=== PATIENT | female | born 2000 | race Caucasian/White ===

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

== ENCOUNTER 2023-03-01 07:22 | Emergency (ER) | payer OTHER ==
[~2023-03-01] VITALS: Ht 157.4 cm; Wt 56.7 kg
[~2023-03-01 07:22] MED LIST changes: +PREDNISONE20 M1 PO
[2023-03-01] MEDS ORDERED: PREDNISONE50 MG PO (09:33)
[2023-03-03] MEDS ORDERED: IS (12:04)
[2023-03-03] MEDS ORDERED: PREDNISONE10 MG PO (12:04)
[2023-03-03] MEDS ORDERED: MUCUS RELIEF600 MG PO (12:04)
== END 2023-03-01 09:37 | disposition home or self-care (01) ==
LOC: ED 07:22
DX: J45.901 Unspecified asthma with (acute) exacerbation (principal); Z79.899 Other long term (current) drug therapy

== ENCOUNTER 2023-05-29 16:20 | Emergency (ER) | payer OTHER ==
[~2023-05-29] VITALS: Ht 157.4 cm; Wt 59.0 kg
[~2023-05-29 16:20] MED LIST changes: +IS; +MUCUS RELIEF600 MG PO; +PREDNISONE10 MG PO; +PREDNISONE50 MG PO
[2023-05-29] MEDS ORDERED: SYMB160 INH (16:36)
== END 2023-05-29 18:15 | disposition left against medical advice (07) ==
LOC: ED 16:20
DX: R10.9 Unspecified abdominal pain (principal); M54.9 Dorsalgia, unspecified; R11.0 Nausea; M25.511 Pain in right shoulder; Z53.21 Procedure and treatment not carried out due to patient leaving prior to being seen by health care provider

== ENCOUNTER → 2024-03-12 | Outpatient (CLI) | payer OTHER ==
[~2024-03-12] MED LIST changes: +BUPROPION HYDR150 M1 PO; +CETIRIZINE HYDR10 MG PO; +FEXOFENADINE HY60 MG PO; +LO LOESTRIN FE1 EACH PO; +SYMB160 INH; +VENLAFAXINE HY150 M2 PO
== END | disposition home or self-care (01) ==
LOC: RAD 10:32
PROVIDERS: ATTEND Nurse Practitioner Family
DX: K59.01 Slow transit constipation (principal)

== ENCOUNTER 2024-03-18 14:34 | Emergency (ER) | payer OTHER ==
[~2024-03-18] VITALS: Ht 157.4 cm; Wt 56.7 kg
[~2024-03-18 14:34] MED LIST changes: -BUPROPION HYDR150 M1 PO; -CETIRIZINE HYDR10 MG PO; -FEXOFENADINE HY60 MG PO; -LO LOESTRIN FE1 EACH PO; -VENLAFAXINE HY150 M2 PO
[2024-03-18] MEDS ORDERED: LO LOESTRIN FE1 EACH PO (15:50)
[2024-03-18] MEDS ORDERED: VENLAFAXINE HY150 M2 PO (15:50)
[2024-03-18] MEDS ORDERED: FEXOFENADINE HY60 MG PO (15:50)
[2024-03-18] MEDS ORDERED: CETIRIZINE HYDR10 MG PO (15:50)
[2024-03-18] MEDS ORDERED: BUPROPION HYDR150 M1 PO (15:50)
[2024-03-18] MEDS ORDERED: SODIUM CHLORIDE 0.9% 1,000 ML IV ONE (16:00)
[2024-03-18] MEDS ORDERED: Ondansetron Hydrochloride 4 MG/2 ML VIAL IV ONE (16:05)
[2024-03-18] MEDS ORDERED: IOHEXOL 300 MG/ML 100 ML VIAL IV ONE (16:15)
[2024-03-18 16:41] LABS: BASO # 0.1 10*3/uL (0.0-0.1); BASO % 1.3 % (0.0-1.0); EOS # 0.9 10*3/uL (0.0-0.4); EOS % 9.6 % (1.0-4.0); HEMATOCRIT 42.7 % (37.0-47.0); LYMPH # 2.7 10*3/uL (1.3-4.4); LYMPH % 29.8 % (27.0-41.0); MEAN CELL VOLUME 91.4 fl (81.0-99.0); MEAN CORPUSCULAR HGB 31.9 pg (27.0-31.0); MEAN CORPUSCULAR HGB CONC 34.9 g/dl (33.0-37.0); MEAN PLATELET VOLUME 10.3 fl (9.6-12.3); MONO # 0.8 10*3/uL (0.1-1.0); MONO % 8.4 % (3.0-9.0); NEUT # 4.5 10*3/uL (2.3-7.9); NEUT % 50.7 % (47.0-73.0); PLATELET COUNT AUTOMATED 326 10*3/uL (130-400); RED BLOOD COUNT 4.67 10*6/uL (4.10-5.10); RED CELL DISTRI WIDTH 12.2 % (0-14.5); WHITE BLOOD COUNT 8.9 10*3/uL (4.8-10.8)
[2024-03-18 17:04] LABS: ALKALINE PHOSPHATASE 46 U/L (46-116); BUN 8 mg/dl (9-23); CHLORIDE 104 mmol/L (98-107); LIPASE 33 U/L (12-53); SGPT/ALT 18 U/L (5-49)
[2024-03-18 17:13] LABS: BILIRUBIN Negative (Negative); BLOOD Negative (Negative); CLARITY Clear (Clear); COLOR Yellow (Yellow); GLUCOSE Negative (Negative); KETONE Negative (Negative); LEUKO ESTERASE Negative (Negative); NITRITE Negative (Negative); SPECIFIC GRAVITY <= 1.005 (1.001-1.030); UROBILINOGEN 0.2 E.U./dl (0.0-1.0)
[2024-03-18 17:49] LABS: RBC 0-2 rbc/hpf (0-2); WBC 0-2 wbc/hpf (0-5)
[2024-03-18 17:50] LABS: BACTERIA 1+
[2024-03-18] MEDS ORDERED: MAGNESIUM CITRATE 296 ML BOT PO ONE (18:55)
== END 2024-03-18 18:48 | disposition home or self-care (01) ==
LOC: ED 14:34
PROVIDERS: Nurse Practitioner Family
DX: K59.00 Constipation, unspecified (principal); R11.0 Nausea; J45.909 Unspecified asthma, uncomplicated; F41.9 Anxiety disorder, unspecified

== ENCOUNTER → 2025-01-19 | Outpatient (CLI) | payer OTHER ==
[~2025-01-19] MED LIST changes: +BUPROPION HYDR150 M1 PO; +CETIRIZINE HYDR10 MG PO; +FEXOFENADINE HY60 MG PO; +LO LOESTRIN FE1 EACH PO; +VENLAFAXINE HY150 M2 PO
[2025-01-19 12:02] LABS: URINE AMPHETAMINES Negative (1000ng/ml); URINE BARBITURATES Negative (200ng/ml); URINE BENZODIAZEPINES Negative (200ng/ml); URINE CANNABINOIDS (THC) Negative (50ng/ml); URINE COCAINE Negative (300ng/ml); URINE METHADONE Negative (300ng/ml); URINE OPIATES Negative (300ng/ml); URINE PHENCYCLIDINE Negative (25ng/ml)
[2025-01-20 08:08] LABS: MEASLES (RUBEOLA) Abs, IgG >300.0 AU/mL (Immune >16.4); MUMPS ANTIBODIES, IGG 169.0 AU/mL (Immune >10.9); VARICELLA ZOSTER (VZV) IgG Non Reactive (Non Reactive)
[2025-01-21 10:07] LABS: TB1 Ag VALUE 0.04 IU/mL (.)
== END | disposition home or self-care (01) ==
LOC: LAB 11:24
PROVIDERS: ATTEND Nurse Practitioner Family
DX: Z11.1 Encounter for screening for respiratory tuberculosis (principal); Z01.84 Encounter for antibody response examination